=== PATIENT | female | born 1965 | race Caucasian/White ===

== ENCOUNTER 2017-10-13 11:25 | Inpatient (IN) | payer MEDICAID ==
[~2017-10-13] VITALS: Ht 167.6 cm; Wt 100.0 kg
[2017-10-13] MEDS ORDERED: normal saline 1000ML IV soln IVB ONE ×2 (12:00)
[2017-10-13 12:26] LABS: BASOPHILS # (AUTO) 0.1 X10'3 (0-0.2); BASOPHILS % (AUTO) 1.2 % (0-1); EOSINOPHILS # (AUTO) 0.1 X10'3 (0-0.9); EOSINOPHILS % (AUTO) 1.7 % (0-6); HEMATOCRIT 36.8 % (35.0-45.0); HEMOGLOBIN 12.8 g/dl (12.0-16.0); LYMPHOCYTES # (AUTO) 1.7 X10'3 (1.1-4.8); LYMPHOCYTES % (AUTO) 29.1 % (21-51); MEAN CORPUSCULAR HEMOGLOBIN 30.5 PG (27.0-31.0); MEAN CORPUSCULAR HGB CONC 34.9 % (33.0-36.5); MEAN CORPUSCULAR VOLUME 87.4 FL (78-98); MEAN PLATELET VOLUME 9.8 FL (7.4-10.4); MONOCYTES # (AUTO) 0.4 X10'3 (0-0.9); MONOCYTES % (AUTO) 6.9 % (2-12); NEUTROPHILS # (AUTO) 3.5 X10'3 (1.8-7.7); NEUTROPHILS % (AUTO) 61.1 % (42-75); PLATELET COUNT 180 X10'3 (140-440); RED BLOOD COUNT 4.21 X10'6 (4.20-5.60); RED CELL DISTRIBUTION WIDTH 13.1 % (11.5-14.5); WHITE BLOOD COUNT 5.7 X10'3 (4.5-11.0)
[2017-10-13 12:39] LABS: CLARITY,URINE CLEAR (Clear); COLOR,URINE YELLOW (Yellow); GLUCOSE, URINE >=1000 mg/dl (Neg); KETONES,URINE NEGATIVE (Neg); LEUKOCYTE ESTERASE ,URINE NEGATIVE (Neg); NITRITES, URINE NEGATIVE (Neg); OCCULT BLOOD,URINE TRACE-LYSED (Neg); PROTEIN,URINE NEGATIVE (Neg)
[2017-10-13 12:45] LABS: ALANINE AMINOTRANSFERASE 41 U/L (12-78); ALBUMIN 2.8 G/DL (3.4-5.0); ALBUMIN/GLOBULIN RATIO 0.6 (1.1-1.5); ANION GAP 8 (8-16); ASPARTATE AMINO TRANSFERASE 40 U/L (10-37); BILIRUBIN,TOTAL 0.6 MG/DL (0.1-1.0); BLOOD UREA NITROGEN 14 MG/DL (7-18); BUN/CREATININE RATIO 14.6 (6.6-38.0); CALCIUM 8.8 MG/DL (8.5-10.1); CHLORIDE 94 MMOL/L (99-107); CREATININE 0.96 MG/DL (0.40-0.90); ETHANOL < 0.010 GM/DL (0.0-0.010); POTASSIUM 3.5 MMOL/L (3.5-5.1); SODIUM 131 MMOL/L (135-145); TOTAL CARBON DIOXIDE 29.2 MMOL/L (24-32); TOTAL PROTEIN 7.5 G/DL (6.4-8.2); eGFR 61 ML/MIN
[2017-10-13 12:45] LABS: UA COLLECTION TYPE CLN CATCH MIDSTREAM
[2017-10-13 12:46] LABS: ALKALINE PHOSPHATASE 66 IU/L (46-116)
[2017-10-13 12:47] LABS: GLUCOSE 602 MG/DL (70-104)
[2017-10-13 12:49] LABS: BACTERIA,URINE FEW /HPF (Neg); RBC,URINE NONE SEEN /HPF (0-2); SQUAMOUS EPITHELIAL CELL,UR FEW /LPF (FEW); WBC CLUMPS,URINE FEW /HPF (NEGATIVE); YEAST FEW /HPF (NEGATIVE)
[2017-10-13] MEDS ORDERED: vancomycin/NS 1 GM ADD-VANTAGE 250 ML IV ONE (13:45)
[2017-10-13] MEDS ORDERED: acetaminophen 325mg tablet PO PRN (15:10)
[2017-10-13] MEDS ORDERED: mag hydrox/Alum hydrox/simeth 30ml oral suspension PO PRN (15:10)
[2017-10-13] MEDS ORDERED: magnesium hydroxide 30ml (MOM) UD suspension PO PRN (15:10)
[2017-10-13] MEDS ORDERED: ondansetron/PF 4mg/2ml inj IV PRN (15:10)
[2017-10-13] MEDS ORDERED: MESSAGE TO PHARMACY PO ONE (15:35)
[2017-10-13] MEDS ORDERED: glucagon, human recombinant 1mg kit SUBCUT PRN (15:35)
[2017-10-13] MEDS ORDERED: dextrose 50%-water 50ml dispensing syringe IV PRN ×2 (15:35)
[2017-10-13] MEDS ORDERED: insulin regular, human 10 units/0.1 ml syringe SQ ONE (15:35)
[2017-10-13] MEDS ORDERED: dextrose ORAL solution 15 GM/59 ML bottle PO PRN ×2 (15:35)
[2017-10-13] MEDS: normal saline 1000ml 1,000 ML IV SCH (16:18)
[2017-10-13] MEDS: HYDROmorphone 1 mg/ml syringe IV PRN ×2 (18:02→22:47)
[2017-10-13 19:00] VITALS: BP 98/71
[2017-10-13] MEDS: cefepime 2g/NS 100ml ADVANTAGE 100 ML IV SCH (20:17)
[2017-10-13] MEDS: heparin, porcine 5000 units/ml vial SQ SCH (20:18)
[2017-10-13] MEDS: insulin Lispro (HumaLOG) vial - multi-dose SQ SCH (20:21)
[2017-10-13] MEDS: insulin glargine (Lantus) pen - multi-dose SQ SCH (22:46)
[2017-10-13 23:30] VITALS: BP 105/71
[2017-10-14] MEDS ORDERED: vancomycin inj 1,250 MG in normal saline 250ml IV soln 250 ML IV SCH (01:00)
[2017-10-14] MEDS: normal saline 1000ml 1,000 ML IV SCH ×2 (01:27→11:08)
[2017-10-14] MEDS: HYDROmorphone 1 mg/ml syringe IV PRN ×3 (04:30→20:41)
[2017-10-14 04:50] LABS: BASOPHILS % (AUTO) 0.7 % (0-1); EOSINOPHILS # (AUTO) 0.1 X10'3 (0-0.9); EOSINOPHILS % (AUTO) 2.7 % (0-6); HEMATOCRIT 34.2 % (35.0-45.0); HEMOGLOBIN 11.9 g/dl (12.0-16.0); LYMPHOCYTES # (AUTO) 1.8 X10'3 (1.1-4.8); LYMPHOCYTES % (AUTO) 38.3 % (21-51); MEAN CORPUSCULAR HEMOGLOBIN 30.8 PG (27.0-31.0); MEAN CORPUSCULAR HGB CONC 34.7 % (33.0-36.5); MEAN CORPUSCULAR VOLUME 88.6 FL (78-98); MONOCYTES # (AUTO) 0.4 X10'3 (0-0.9); MONOCYTES % (AUTO) 7.4 % (2-12); NEUTROPHILS # (AUTO) 2.4 X10'3 (1.8-7.7); NEUTROPHILS % (AUTO) 50.9 % (42-75); PLATELET COUNT 144 X10'3 (140-440); RED BLOOD COUNT 3.86 X10'6 (4.20-5.60); RED CELL DISTRIBUTION WIDTH 12.5 % (11.5-14.5); WHITE BLOOD COUNT 4.7 X10'3 (4.5-11.0)
[2017-10-14 04:53] LABS: ALBUMIN 2.4 G/DL (3.4-5.0); ANION GAP 6 (8-16); BLOOD UREA NITROGEN 13 MG/DL (7-18); BUN/CREATININE RATIO 18.8 (6.6-38.0); CALCIUM 8.5 MG/DL (8.5-10.1); CHLORIDE 101 MMOL/L (99-107); CREATININE 0.69 MG/DL (0.40-0.90); GLUCOSE 326 MG/DL (70-104); POTASSIUM 3.2 MMOL/L (3.5-5.1); SODIUM 138 MMOL/L (135-145); TOTAL CARBON DIOXIDE 30.6 MMOL/L (24-32); eGFR 90 ML/MIN
[2017-10-14 07:00] VITALS: BP 132/80
[2017-10-14] MEDS ORDERED: potassium Cl 20 mEq SR tablet PO PRN (08:20)
[2017-10-14] MEDS ORDERED: magnesium 4gm in 100ml NS 100 ML IV PRN (08:20)
[2017-10-14] MEDS ORDERED: magnesium 1gm/100ml D5W IVPB 100 ML IV PRN (08:20)
[2017-10-14] MEDS ORDERED: potassium Cl 40MEQ/NS 500ml 500 ML IV PRN ×2 (08:20)
[2017-10-14] MEDS: heparin, porcine 5000 units/ml vial SQ SCH ×2 (08:25→20:25)
[2017-10-14] MEDS: cefepime 2g/NS 100ml ADVANTAGE 100 ML IV SCH ×2 (08:25→20:26)
[2017-10-14] MEDS: insulin Lispro (HumaLOG) vial - multi-dose SQ SCH ×3 (08:28→19:32)
[2017-10-14] MEDS: potassium Cl 20 mEq SR tablet PO PRN (08:35)
[2017-10-14 10:07] LABS: MAGNESIUM 1.4 MG/DL (1.5-2.4); POTASSIUM 3.5 MMOL/L (3.5-5.1)
[2017-10-14 11:00] VITALS: BP 124/76
[2017-10-14] MEDS: vancomycin inj 1,250 MG in normal saline 250ml IV soln 250 ML IV SCH ×2 (13:30→22:32)
[2017-10-14] MEDS ORDERED: NO HOME MEDS (16:18)
[2017-10-14 19:00] VITALS: BP 115/62
[2017-10-14] MEDS: lactobacillus rhamnosus 10,000 MMU CELLS/CAPSULE PO SCH (20:24)
[2017-10-14] MEDS: magnesium Cl slow-release 64mg tablet PO PRN (20:40)
[2017-10-14] MEDS: insulin glargine (Lantus) pen - multi-dose SQ SCH (22:37)
[2017-10-15 00:09] VITALS: BP 128/88
[2017-10-15] MEDS: HYDROmorphone 1 mg/ml syringe IV PRN ×5 (03:43→21:12)
[2017-10-15] MEDS: vancomycin inj 1,250 MG in normal saline 250ml IV soln 250 ML IV SCH ×3 (05:25→22:09)
[2017-10-15 05:53] LABS: BASOPHILS % (AUTO) 0.3 % (0-1); EOSINOPHILS # (AUTO) 0.1 X10'3 (0-0.9); EOSINOPHILS % (AUTO) 1.9 % (0-6); HEMATOCRIT 35.1 % (35.0-45.0); HEMOGLOBIN 12.1 g/dl (12.0-16.0); LYMPHOCYTES # (AUTO) 1.6 X10'3 (1.1-4.8); LYMPHOCYTES % (AUTO) 37.3 % (21-51); MEAN CORPUSCULAR HEMOGLOBIN 30.8 PG (27.0-31.0); MEAN CORPUSCULAR HGB CONC 34.6 % (33.0-36.5); MEAN CORPUSCULAR VOLUME 89.2 FL (78-98); MEAN PLATELET VOLUME 11.4 FL (7.4-10.4); MONOCYTES # (AUTO) 0.2 X10'3 (0-0.9); MONOCYTES % (AUTO) 5.8 % (2-12); NEUTROPHILS # (AUTO) 2.4 X10'3 (1.8-7.7); NEUTROPHILS % (AUTO) 54.7 % (42-75); PLATELET COUNT 154 X10'3 (140-440); RED BLOOD COUNT 3.94 X10'6 (4.20-5.60); RED CELL DISTRIBUTION WIDTH 12.6 % (11.5-14.5); WHITE BLOOD COUNT 4.3 X10'3 (4.5-11.0)
[2017-10-15 05:58] LABS: ALBUMIN 2.3 G/DL (3.4-5.0); ANION GAP 4 (8-16); BLOOD UREA NITROGEN 12 MG/DL (7-18); BUN/CREATININE RATIO 18.8 (6.6-38.0); CALCIUM 8.3 MG/DL (8.5-10.1); CHLORIDE 102 MMOL/L (99-107); CREATININE 0.64 MG/DL (0.40-0.90); GLUCOSE 223 MG/DL (70-104); MAGNESIUM 1.4 MG/DL (1.5-2.4); POTASSIUM 3.3 MMOL/L (3.5-5.1); SODIUM 135 MMOL/L (135-145); eGFR > 90 ML/MIN
[2017-10-15 07:20] VITALS: BP 164/88
[2017-10-15] MEDS: magnesium Cl slow-release 64mg tablet PO PRN ×2 (08:02→21:06)
[2017-10-15] MEDS: lactobacillus rhamnosus 10,000 MMU CELLS/CAPSULE PO SCH ×2 (08:03→21:04)
[2017-10-15] MEDS: potassium Cl 20 mEq SR tablet PO PRN ×3 (08:03→17:12)
[2017-10-15] MEDS: heparin, porcine 5000 units/ml vial SQ SCH ×2 (08:04→21:05)
[2017-10-15] MEDS: insulin Lispro (HumaLOG) vial - multi-dose SQ SCH ×3 (08:16→19:08)
[2017-10-15] MEDS: cefepime 2g/NS 100ml ADVANTAGE 100 ML IV SCH ×2 (08:18→21:06)
[2017-10-15 08:44] VITALS: BP 119/71
[2017-10-15] MEDS ORDERED: furosemide 40mg/4ml inj IV ONE (11:25)
[2017-10-15 11:27] VITALS: BP 159/82
[2017-10-15] MEDS ORDERED: VANCOMYCIN LEVEL IV ONE (12:30)
[2017-10-15 18:00] VITALS: BP 99/65
[2017-10-15] MEDS: insulin glargine (Lantus) pen - multi-dose SQ SCH (21:01)
[2017-10-16] MEDS: HYDROmorphone 1 mg/ml syringe IV PRN ×3 (00:06→07:15)
[2017-10-16 00:16] VITALS: BP 90/51
[2017-10-16] MEDS: vancomycin inj 1,250 MG in normal saline 250ml IV soln 250 ML IV SCH ×2 (04:49→12:42)
[2017-10-16 06:04] LABS: BASOPHILS % (AUTO) 0.6 % (0-1); EOSINOPHILS # (AUTO) 0.1 X10'3 (0-0.9); EOSINOPHILS % (AUTO) 1.8 % (0-6); HEMATOCRIT 38.8 % (35.0-45.0); HEMOGLOBIN 13.1 g/dl (12.0-16.0); LYMPHOCYTES # (AUTO) 1.5 X10'3 (1.1-4.8); LYMPHOCYTES % (AUTO) 29.2 % (21-51); MEAN CORPUSCULAR HEMOGLOBIN 29.9 PG (27.0-31.0); MEAN CORPUSCULAR HGB CONC 33.8 % (33.0-36.5); MEAN CORPUSCULAR VOLUME 88.6 FL (78-98); MEAN PLATELET VOLUME 10.4 FL (7.4-10.4); MONOCYTES # (AUTO) 0.3 X10'3 (0-0.9); MONOCYTES % (AUTO) 6.9 % (2-12); NEUTROPHILS # (AUTO) 3.1 X10'3 (1.8-7.7); NEUTROPHILS % (AUTO) 61.5 % (42-75); PLATELET COUNT 159 X10'3 (140-440); RED BLOOD COUNT 4.38 X10'6 (4.20-5.60); RED CELL DISTRIBUTION WIDTH 13.7 % (11.5-14.5)
[2017-10-16 06:10] LABS: ALBUMIN 2.3 G/DL (3.4-5.0); ANION GAP 5 (8-16); BLOOD UREA NITROGEN 19 MG/DL (7-18); BUN/CREATININE RATIO 30.6 (6.6-38.0); CALCIUM 8.5 MG/DL (8.5-10.1); CHLORIDE 98 MMOL/L (99-107); CREATININE 0.62 MG/DL (0.40-0.90); GLUCOSE 201 MG/DL (70-104); MAGNESIUM 1.4 MG/DL (1.5-2.4); POTASSIUM 3.3 MMOL/L (3.5-5.1); SODIUM 136 MMOL/L (135-145); TOTAL CARBON DIOXIDE 32.7 MMOL/L (24-32); eGFR > 90 ML/MIN
[2017-10-16 07:00] VITALS: BP 141/84
[2017-10-16] MEDS: heparin, porcine 5000 units/ml vial SQ SCH (07:14)
[2017-10-16] MEDS: lactobacillus rhamnosus 10,000 MMU CELLS/CAPSULE PO SCH (07:14)
[2017-10-16] MEDS ORDERED: furosemide 40mg/4ml inj IV SCH (08:00)
[2017-10-16] MEDS: insulin Lispro (HumaLOG) vial - multi-dose SQ SCH ×2 (08:43→12:55)
[2017-10-16] MEDS: potassium Cl 20 mEq SR tablet PO PRN ×2 (08:48→13:41)
[2017-10-16] MEDS: cefepime 2g/NS 100ml ADVANTAGE 100 ML IV SCH (09:44)
[2017-10-16] MEDS ORDERED: HYDROcodone/acetaminophen 10/325mg tab PO PRN (10:15)
[2017-10-16] MEDS ORDERED: HYDROcodone/acetaminophen 5mg/325mg tablet PO PRN (10:15)
[2017-10-16 12:00] VITALS: BP 107/72
== END 2017-10-16 13:55 | DRG 383 ==
LOC: EDBD 11:26 → ER 11:26 → ED HOLD 15:08 → SUR 3N 17:32
PROVIDERS: ADMIT Family Medicine; ATTEND Family Medicine
DX: L03.116 Cellulitis of left lower limb (principal); E11.00 Type 2 diabetes mellitus with hyperosmolarity without nonketotic hyperglycemic-hyperosmolar coma (NKHHC); E87.1 Hypo-osmolality and hyponatremia; E87.6 Hypokalemia; F12.90 Cannabis use, unspecified, uncomplicated; F17.210 Nicotine dependence, cigarettes, uncomplicated; G25.81 Restless legs syndrome; G89.29 Other chronic pain; I10 Essential (primary) hypertension; L89.891 Pressure ulcer of other site, stage 1; L89.100 Pressure ulcer of unspecified part of back, unstageable; J44.9 Chronic obstructive pulmonary disease, unspecified; L03.317 Cellulitis of buttock; B19.20 Unspecified viral hepatitis C without hepatic coma; M19.90 Unspecified osteoarthritis, unspecified site; M54.9 Dorsalgia, unspecified; Z99.3 Dependence on wheelchair; Z88.5 Allergy status to narcotic agent; Z90.49 Acquired absence of other specified parts of digestive tract; Z98.51 Tubal ligation status; Z91.19 Patient's noncompliance with other medical treatment and regimen
CPT/HCPCS: 36415; 80048; 80053; 80202; 80320; 81001; 82009; 82948; 83036; 83605; 83735; 84132; 85025; 87040; 87070; 87088; 96361; 96365; 97110; 97161; 97530; 99285; A6212; A6213; A6250; A6449; J0692; J1170; J1644; J1815; J1940; J3370; J7030